=== PATIENT | male | born 1965 | race Caucasian/White ===

== ENCOUNTER 2019-12-31 08:44 | Emergency (ER) | payer OTHER ==
[~2019-12-31] VITALS: Ht 165.1 cm; Wt 80.3 kg
[2019-12-31 08:53] VITALS: Ht 165.1 cm; Wt 80.3 kg
[2019-12-31 10:28] VITALS: BP 132/86
== END 2019-12-31 10:15 | disposition home or self-care (01) ==
LOC: ED 08:44
DX: S50.12XA Contusion of left forearm, initial encounter (principal); V43.62XA Car passenger injured in collision with other type car in traffic accident, initial encounter; Y93.89 Activity, other specified; Y92.89 Other specified places as the place of occurrence of the external cause; Y99.8 Other external cause status
CPT/HCPCS: Q0092